=== PATIENT | female | born 1960 | race Caucasian/White ===

== ENCOUNTER 2023-10-17 09:57 | Outpatient (RCR) | payer OTHER, SELFPAY | END 2023-10-17 23:59 | disposition home or self-care (01) | LOC: RST 09:57 | PROVIDERS: ATTENDING PHYSICIAN Physical Medicine & Rehabilitation; FAMILY PHYSICIAN Physician Assistant Medical | DX: H81.11 Benign paroxysmal vertigo, right ear (principal); Z95.2 Presence of prosthetic heart valve; L90.5 Scar conditions and fibrosis of skin; I99.8 Other disorder of circulatory system; J90 Pleural effusion, not elsewhere classified; Z87.74 Personal history of (corrected) congenital malformations of heart and circulatory system | CPT/HCPCS: 92507; 97010; 97110; 97112; 97116; 97162; 97530; 97535; G0422; G0423 ==

== ENCOUNTER → 2023-10-17 15:45 | Outpatient (REF) | payer OTHER, MEDICARE, SELFPAY | LOC: RAD 15:45 | PROVIDERS: ATTENDING PHYSICIAN Podiatrist Foot & Ankle Surgery; FAMILY PHYSICIAN Physician Assistant Medical | DX: M86.172 Other acute osteomyelitis, left ankle and foot (principal) | CPT/HCPCS: 73630 ==

== ENCOUNTER → 2023-10-29 16:24 | Outpatient (REF) | payer OTHER, SELFPAY | LOC: RAD 16:24 | PROVIDERS: ATTENDING PHYSICIAN Physician Assistant Medical | DX: M54.2 Cervicalgia (principal) | CPT/HCPCS: 72052 ==

== ENCOUNTER → 2023-11-14 10:14 | Outpatient (REF) | payer OTHER, SELFPAY ==
[2023-11-14 11:34] LABS: % Basophils 0.2 % (0-2); % Immature Granulocytes 0.2 % (0-0.5); % Monocytes 5.2 % (1.7-9.3); % Neutrophils 63.4 % (42.2-75.2); Absolute Eosinophils 0.6 10^3/uL (0-0.7); Absolute Monocytes 0.3 10^3/uL (0.1-0.6); Absolute Neutrophils 3.3 10^3/uL (1.4-6.5); Hematocrit 32.8 % (37.0-47.0); Mean Corp Hgb Conc. 33.5 g/dL (33.0-37.0); Mean Corpuscular Hgb 26.9 pg (27.0-31.0); Mean Corpuscular Volume 80.2 fL (81.0-99.0); Mean Platelet Volume 11.3 fL (7.4-10.4); Nucleated Red Blood Cells % 0 %; Platelet Count 151 10^3/uL (130-400); Red Blood Cell Count 4.09 10^6/uL (4.20-5.40); Red Cell Dist. Width 14.6 % (11.5-14.5); White Blood Cell Count 5.2 10^3/uL (4.8-10.8)
[2023-11-14 11:39] LABS: INR 1.35; PT 16.8 Sec (11.4-14.6)
[2023-11-14 11:40] LABS: APTT 47.8 Sec (23.4-35.0)
[2023-11-14 12:04] LABS: ALT (SGPT) 49 U/L (0-35); AST (SGOT) 45 U/L (14-36); Albumin 4.3 g/dl (3.5-5.0); Alkaline Phosphatase 102 U/L (38-126); Direct Bilirubin 0.5 mg/dl (0.0-0.4); Total Bilirubin 0.6 mg/dl (0.2-1.3); Total Protein 7.9 g/dl (6.3-8.2)
== END ==
LOC: REG 10:14
PROVIDERS: ATTENDING PHYSICIAN Physician Assistant Medical
DX: R23.3 Spontaneous ecchymoses (principal)
CPT/HCPCS: 36415; 80076; 85025; 85610; 85730

== ENCOUNTER 2023-11-14 15:20 | Outpatient (RCR) | payer OTHER, SELFPAY | END 2023-11-14 23:59 | disposition home or self-care (01) | LOC: CRHB 15:20 | PROVIDERS: ATTENDING PHYSICIAN Internal Medicine Cardiovascular Disease | DX: Z95.2 Presence of prosthetic heart valve (principal); Z95.810 Presence of automatic (implantable) cardiac defibrillator | CPT/HCPCS: G0422; G0423 ==

== ENCOUNTER → 2023-11-15 08:28 | Outpatient (REF) | payer OTHER, SELFPAY | LOC: RAD 08:28 | PROVIDERS: ATTENDING PHYSICIAN Physician Assistant Medical | DX: Z13.820 Encounter for screening for osteoporosis (principal) | CPT/HCPCS: 77080 ==

== ENCOUNTER 2023-11-15 10:23 | Outpatient (RCR) | payer OTHER, SELFPAY | END 2023-11-15 23:59 | disposition home or self-care (01) | LOC: RST 10:23 | PROVIDERS: ATTENDING PHYSICIAN Physical Medicine & Rehabilitation; FAMILY PHYSICIAN Physician Assistant Medical | DX: R49.0 Dysphonia (principal); R41.841 Cognitive communication deficit; L90.5 Scar conditions and fibrosis of skin; R65.21 Severe sepsis with septic shock; J90 Pleural effusion, not elsewhere classified; K81.9 Cholecystitis, unspecified; Z95.2 Presence of prosthetic heart valve; Z87.74 Personal history of (corrected) congenital malformations of heart and circulatory system | CPT/HCPCS: 92507 ==

== ENCOUNTER → 2023-11-19 17:39 | Outpatient (REF) | payer OTHER, SELFPAY | LOC: RAD 17:39 | PROVIDERS: ATTENDING PHYSICIAN Podiatrist Foot & Ankle Surgery; FAMILY PHYSICIAN Physician Assistant Medical | DX: M86.172 Other acute osteomyelitis, left ankle and foot (principal) | CPT/HCPCS: 73630 ==

== ENCOUNTER → 2023-11-26 07:27 | Outpatient (REF) | payer OTHER, SELFPAY ==
[2023-11-26 07:54] VITALS: BP 90/54; BP_SYST 71
[2023-11-26 08:38] VITALS: BP 95/65; BP_SYST 73
[2023-11-26 08:47] VITALS: BP 95/65
== END ==
LOC: RADI 07:27
PROVIDERS: ATTENDING PHYSICIAN Internal Medicine Infectious Disease; FAMILY PHYSICIAN Physician Assistant Medical
DX: M86.9 Osteomyelitis, unspecified (principal)
CPT/HCPCS: 36573

== ENCOUNTER 2023-11-26 08:53 | Outpatient (RCR) | payer OTHER, SELFPAY ==
[2023-11-26] MEDS: MAXIPIME 62.5 MG IV (09:53)
[2023-11-26 09:59] VITALS: BP 146/89
[2023-11-26 10:15] LABS: % Basophils 2.3 % (0-2); % Eosinophils 4.7 % (0-6); % Immature Granulocytes 0.2 % (0-0.5); % Lymphocytes 41.3 % (20.5-51.1); % Monocytes 11.7 % (1.7-9.3); % Neutrophils 39.8 % (42.2-75.2); Absolute Basophils 0.1 10^3/uL (0-0.2); Absolute Eosinophils 0.3 10^3/uL (0-0.7); Absolute Lymphocytes 2.2 10^3/uL (1.2-3.4); Absolute Monocytes 0.6 10^3/uL (0.1-0.6); Absolute Neutrophils 2.1 10^3/uL (1.4-6.5); Hematocrit 31.5 % (37.0-47.0); Hemoglobin 10.4 g/dL (12.0-16.0); Mean Corpuscular Hgb 27.2 pg (27.0-31.0); Mean Corpuscular Volume 82.5 fL (81.0-99.0); Mean Platelet Volume 10.3 fL (7.4-10.4); Nucleated Red Blood Cells % 0 %; Platelet Count 308 10^3/uL (130-400); Red Blood Cell Count 3.82 10^6/uL (4.20-5.40); Red Cell Dist. Width 14.6 % (11.5-14.5); White Blood Cell Count 5.3 10^3/uL (4.8-10.8)
[2023-11-26 10:26] LABS: ALT (SGPT) 30 U/L (0-35); AST (SGOT) 31 U/L (14-36); Alkaline Phosphatase 94 U/L (38-126); Blood Urea Nitrogen 18 mg/dl (7-17); Calcium 9.1 mg/dl (8.4-10.2); Carbon Dioxide 28 mmol/L (22-30); Chloride 102 mmol/L (98-107); Glucose 81 mg/dl (70-99); Potassium 4.3 mmol/L (3.5-5.1); Sodium 133 mmol/L (135-145); Total Bilirubin 0.8 mg/dl (0.2-1.3); Total Protein 7.3 g/dl (6.3-8.2); eGFR > 60.00
[2023-11-26 10:30] LABS: C-Reactive Protein < 5.00 mg/L (0.0-10.00)
== END 2023-12-16 23:59 | disposition home or self-care (01) ==
LOC: OID 08:53
PROVIDERS: ATTENDING PHYSICIAN Internal Medicine Infectious Disease; FAMILY PHYSICIAN Physician Assistant Medical
DX: M86.9 Osteomyelitis, unspecified (principal)
CPT/HCPCS: 80053; 85025; 86140; 96365

== ENCOUNTER 2023-11-28 09:31 | Outpatient (RCR) | payer OTHER, SELFPAY | END 2023-11-28 23:59 | disposition home or self-care (01) | LOC: RST 09:31 | PROVIDERS: ATTENDING PHYSICIAN Physical Medicine & Rehabilitation; FAMILY PHYSICIAN Physician Assistant Medical | DX: R49.0 Dysphonia (principal); R41.841 Cognitive communication deficit; L90.5 Scar conditions and fibrosis of skin; R65.21 Severe sepsis with septic shock; J90 Pleural effusion, not elsewhere classified; K81.9 Cholecystitis, unspecified; Z95.2 Presence of prosthetic heart valve; Z87.74 Personal history of (corrected) congenital malformations of heart and circulatory system | CPT/HCPCS: 92507 ==

== ENCOUNTER 2023-12-10 07:30 | Outpatient (RCR) | payer OTHER, SELFPAY | END 2023-12-10 23:59 | disposition home or self-care (01) | LOC: RPT 07:30 | PROVIDERS: ATTENDING PHYSICIAN Physician Assistant Medical | DX: M54.2 Cervicalgia (principal); Z73.6 Limitation of activities due to disability | CPT/HCPCS: 97010; 97110; 97162 ==

== ENCOUNTER 2023-12-12 14:35 | Outpatient (RCR) | payer OTHER, SELFPAY | END 2023-12-12 23:59 | disposition home or self-care (01) | LOC: CRHB 14:35 | PROVIDERS: ATTENDING PHYSICIAN Internal Medicine Cardiovascular Disease | DX: Z95.2 Presence of prosthetic heart valve (principal) | CPT/HCPCS: G0422; G0423 ==

== ENCOUNTER 2023-12-24 16:38 | Inpatient (IN) | payer OTHER, SELFPAY ==
[2023-12-24 10:40] VITALS: BMI 28.9
[2023-12-24 10:58] VITALS: BP 110/56
[2023-12-24 13:13] VITALS: BP 94/56
[2023-12-24 13:38] LABS: Lactic Acid 0.7 mmol/L (0.7-2.0)
[2023-12-24 13:39] LABS: % Basophils 0.3 % (0-2); % Eosinophils 5.2 % (0-6); % Immature Granulocytes 0.7 % (0-0.5); % Lymphocytes 16.7 % (20.5-51.1); % Monocytes 6.9 % (1.7-9.3); % Neutrophils 70.2 % (42.2-75.2); Absolute Eosinophils 0.2 10^3/uL (0-0.7); Absolute Lymphocytes 0.5 10^3/uL (1.2-3.4); Absolute Monocytes 0.2 10^3/uL (0.1-0.6); Hematocrit 24.2 % (37.0-47.0); Hemoglobin 8.5 g/dL (12.0-16.0); Mean Corp Hgb Conc. 35.1 g/dL (33.0-37.0); Mean Corpuscular Hgb 27.6 pg (27.0-31.0); Mean Corpuscular Volume 78.6 fL (81.0-99.0); Mean Platelet Volume 10.9 fL (7.4-10.4); Nucleated Red Blood Cells % 0 %; Platelet Count 142 10^3/uL (130-400); Red Blood Cell Count 3.08 10^6/uL (4.20-5.40); Red Cell Dist. Width 14.6 % (11.5-14.5); White Blood Cell Count 2.9 10^3/uL (4.8-10.8)
[2023-12-24 13:40] LABS: Potassium 3.8 mmol/L (3.5-5.1)
[2023-12-24 13:41] LABS: Blood Urea Nitrogen 20 mg/dl (7-17); Carbon Dioxide 16 mmol/L (22-30); Chloride 105 mmol/L (98-107); Estimated Creatinine Clearance 60 ml/min; Glucose 105 mg/dl (70-99); Magnesium 1.8 mg/dl (1.6-2.3); Sodium 131 mmol/L (135-145); eGFR > 60.00
--- NOTE | 2023-12-24 13:46 | ED.GENMED ---
History of Present Illness
General
Chief Complaint: Abdominal Symptoms
Source: patient
Exam Limitations: none
Time Seen by Provider: 12/24/23 12:24
Nursing documentation reviewed up to this point in time: agreed with
Travel History
Have you had any contact with someone who has COVID-19?: No
Do you have any symptoms of coronavirus? Fever > 100 degrees, chills, cough, shortness of breath, sore throat, loss of taste or smell, muscle aches, or headache?: No
History of Present Illness
History of Present Illness:
Patient currently receiving cefepime via right upper extremity PICC line x 4 weeks for left great toe osteomyelitis, presents ED secondary to 1 week history of persistent nonbloody diarrhea, 1 episode of vomiting, along with decreased appetite and
generalized weakness. Patient was evaluated by her latex spooler this morning and subsequently referred to ED for further evaluation and treatment. Denies fever or chills. Denies dizziness. Denies chest pain or shortness of breath. Denies
abdominal pain.
Past History
Past History
ED Past Medical History: Arrthythmia, CAD, HTN, Valvular disease and Psychiatric (depression)
ED Past Surgical History: Cardiac (Aortic valve repair)
Social History
Tobacco: Non-smoker
Alcohol: None
Drug: None
Personal:
Living: with family
Review of Systems
Review of Systems
Allergies reviewed?: Yes
All Other Systems: ROS reviewed and negative except as documented in HPI and ROS
Constitutional: Reports no symptoms; Denies fever
EENT: Reports no symptoms
Respiratory: Reports no symptoms
Cardiac: Reports no symptoms
ABD/GI: Reports nausea, vomiting and diarrhea; Denies abdominal pain
Musculoskeletal: Reports no symptoms
Skin: Reports no symptoms
Neurological: Reports weakness
Phy Exam
Physical Exam
Physical Exam:
Physical Exam
General: mild distress, not acutely ill. afebrile. weak appearing.
Head: nc/at. eomi
Neck: supple. no meningeal signs.
Heart: s1/s2 regular rate and rhythm, no murmur. equal radial pulses.
Lungs: no acute respiratory distress. clear bilaterally
Abdomen: normal bowel sounds. not tender.
Neuro: alert and oriented. no focal neurological deficits
Skin: no rash
Psychiatric: well kept. interactive and cooperative
Extremities: no edema. no calf tenderness.
Course
Orders/Labs/Results
Orders:
Orders
12/24/23 11:01
Foot, Left 3 View [CR Foot - Left Min 3 Views] Urgent
Comment:
Reason For Exam: ecoli infection
12/24/23 12:58
0.9% Sodium Chloride 1000 ml [Nss] 1,000 ml IV BOLUS
CR Chest Portable - 1 View Urgent
Comment:
Reason For Exam: RUE PICC line placement
Reason Study Needs to be Portable: Other
12/24/23 13:13
Basic Metabolic Panel Urgent
Complete Blood Count/With Diff Urgent
Lactic Acid Q4H
Comment: CANCEL 2nd LACTIC ACID IF 1st LACTIC ACID IS LESS THAN 2
Magnesium Urgent
Blood Culture Q30M
TIFFANY Source: Blood/Venous
Specimen Description:
Blood Culture Q30M
TIFFANY Source: Blood/Venous
Specimen Description:
12/24/23 15:09
Norovirus by PCR Urgent
TIFFANY Source: Feces/Stool
Specimen Description:
Date Specimen was Collected: 12/24/23
Time Specimen was Collected: 15:07
STOOL [C difficile Antigen & Toxins] Urgent
TIFFANY Source: Feces/Stool
Specimen Description:
Date Specimen was Collected: 12/24/23
Time Specimen was Collected: 15:07
Stool Culture Urgent
TIFFANY Source: Feces/Stool
Specimen Description:
Date Specimen was Collected: 12/24/23
Time Specimen was Collected: 15:07
12/24/23 15:21
0.9% Sodium Chloride 250 ml [Nss] 250 ml IV BOLUS
12/24/23 15:30
0.9% Sodium Chloride 1000 ml [Nss] 1,000 ml IV 100 mls/hr
12/24/23 16:22
Admit/Transfer Patient As Directed
Co-Sign Provider:
Level of Care: Inpatient admission
Assign to:: Medical/Surgical
Physician / Group: simona
Diagnosis: cdif
Reason for Hospitalization: cdif
Expected length of stay greater than two midnights?: Yes
ELOS- Estimated Length of Stay in days: 2
I certify the patient meets the requirements for IP care: Yes
12/24/23 16:23
Code Status As Directed
Resuscitation Status: Full Code
12/24/23 18:00
Vancomycin HCl [Firvanq] 125 mg PO Q6
12/24/23 22:00
Cefepime HCl [Maxipime] 2,000 mg IV Q12H
Sodium Chloride [Baring, Saline Mist] See Dose Instructions NASAL BID
12/24/23 22:02
Acetaminophen [Tylenol] 650 mg PO Q4HPRN PRN
Apixaban [Eliquis] 5 mg PO BID
Gabapentin [Neurontin] 300 mg PO BID
Metoprolol Xl [Toprol Xl] 25 mg PO BID
Ondansetron Injectable [Zofran] 4 mg IV Q6HPRN PRN
Sterile Water For Inj [Sterile Water For Injection 1000 ml] 1,000 ml Sodium Bicarbonate 150 meq IV 100 mls/hr
12/24/23 22:02
INFECTIOUS DISEASE CONSULT Routine
Consulting Provider: Hanane Erwin
Was physician already notified: Yes
VTE Contraindication Routine
VTE Mechanical Device Contraindication: Medical Contraindication
Pharmocologic Contraindication: Medical Contraindication
Activity As Directed
Activity Level: As Tolerated
Vital Signs As Directed
Frequency: Per unit guidelines
12/25/23 05:24
Comprehensive Metabolic Panel IN AM
12/25/23 05:25
Complete Blood Count/With Diff IN AM
12/25/23 08:00
Aspirin Chewable [Low Strength Aspirin] 81 mg PO DAILY
Cholecalciferol (Vitamin D3) [VITAMIN D3 (cholecalciferol)] 100 mcg PO DAILY
Escitalopram Oxalate [Lexapro] 10 mg PO DAILY
Famotidine [Pepcid] 20 mg PO DAILY
Ferrous Sulfate [Feosol] 325 mg PO DAILY
Loratadine [Claritin] 10 mg PO DAILY
Multivitamin [Theragran] 1 tablet PO DAILY
Pantoprazole [Protonix] 40 mg PO DAILY
Abnormal Lab Results
12/24/23
13:13
WBC 2.9 L 10^3/uL
(4.8-10.8)
RBC 3.08 L 10^6/uL
(4.20-5.40)
Hgb 8.5 L g/dL
(12.0-16.0)
Hct 24.2 L %
(37.0-47.0)
MCV 78.6 L fL
(81.0-99.0)
RDW 14.6 H %
(11.5-14.5)
MPV 10.9 H fL
(7.4-10.4)
Absolute Lymphs (auto) 0.5 L 10^3/uL
(1.2-3.4)
Immature Gran % 0.7 H %
(0-0.5)
Lymphocytes % 16.7 L %
(20.5-51.1)
Sodium 131 L mmol/L
(135-145)
Carbon Dioxide 16 L mmol/L
(22-30)
BUN 20 H mg/dl
(7-17)
Glucose 105 H mg/dl
(70-99)
12/24/23 13:13
12/24/23 13:13
Vital Signs
Initial and Last Documented VS:
Initial Vital Signs
Temp Pulse Resp BP Pulse Ox
99.3 F 84 18 110/56 100
12/24/23 10:58 12/24/23 10:58 12/24/23 10:58 12/24/23 10:58 12/24/23 10:58
Last Documented Vital Signs
Temp Pulse Resp BP Pulse Ox
97.8 F 79 16 89/49 97
12/25/23 03:15 12/25/23 03:15 12/25/23 03:15 12/25/23 03:15 12/25/23 03:15
MDM/Problems Addressed
MDM/Problems Addressed:
C. difficile toxin positive. Patient will be admitted for further evaluation treatment, especially in light of ongoing dehydration from diarrhea.
Pt evaluated in ED by (ID) - recommendations provided in consultation note.
Pt remains hemodynamically stable.
*Critical Care Note
Total Time (30-74mins, 75-104mins- exclusive of procedures): Not Applicable
ED Attending Note
-
Portions of this chart may have been created with voice recognition software.� Occasional wrong word or��sound alike� substitutions may have occurred due to the inherent limitations of voice recognition software.
Discharge Plan
Departure
Patient Disposition: Admit
Date of Disposition: 12/24/23
Time of Disposition: 16:00
Admit to: Telemetry
Presentation/result/management discussed w/ accepting MD/DO: Hospitalist
Discharge Problem:
C. difficile diarrhea
Interventions
Interventions:
*Risk Screen - Suicide Last Done: 12/24/23 19:51
*General Assessment Last Done: 12/24/23 19:51
*Neglect/Abuse Screening Last Done: 12/24/23 19:51
ED- Fall Risk Assessment Last Done: 12/24/23 12:55
*ED COVID-19 Vaccine History Last Done: 12/24/23 19:51
*Nursing Disposition Last Done: 12/24/23 19:51
XX-Pdwszs-Krispwtxid Assessment Last Done: 12/24/23 12:55
Discharge Date and Time
Discharge Date/Time: 12/24/23 19:54
[2023-12-24 14:00] VITALS: BP 102/60
[2023-12-24] MEDS: NSS 1000 IV ×2 (14:19→18:13)
--- NOTE | 2023-12-24 16:05 | CON.ID ---
Consultation
-
Date/Time Consultation Requested: 12/24/2023, 1400
Date/Time Consultation Performed: 12/24/2023, 1530
Requesting Provider: Dr. Logan Florentino
Performing Provider: Dr. Hanane Erwin
Reason for Consultation: Diarrhea, on IV abx for toe osteo
Chief Complaint / Past History
Chief Complaint
Fatigue and diarrhea
History of Present Illness
Ms. Barnett is a 63 year female known to me with hx who underwent bio-AVR on 05/2023 complicated by post-op left ventricular outlet obstruction requiring re-op septal myomectomy, VSD patch, radical MV repair. Post-op complicated by complete heart
block s/p PPM (06/04/23), shock, JONAS, VDRF, thrombocytopenia, and ischemic/gangrene of all toes. Right 5th toe and left 4th toe allowed to auto-amputate. She eventually recovered. She had persistent left great toe wound and followed with Podiatry.
She continued to have swelling and redness of great toe. 09/19/23 Left foot XRAY showed acute osteo in the tuft of the distal phalanx of left great toe. 10/22/23 toe cx:heavy growth of E. coli. She was placed on Bactrim. However, creatinine increased
and nephrology recommended dc Bactrim. In addition, she developed petechial rash on her legs, and torso. She was referred to ID. I put her on cefepime 2g IV q12 x 6 week till 01/07/24.
She saw podiatry today who sent her to ED. She reports last week started having diarrhea several times a day. Appetite poor. Emesis x 1. No abd pain. No fever or chills. She submitted stool sample for C. diff and norovirus. The great toe is
doing well.
Past History
Additional Past Medical History:
pAfib
s/p bio-AVR (05/2023)
Septal myomectomy (05/2023)
VSD repair (05/2023)
Complete heart block s/p PPM (05/2023)
HFpEF
Post-op ischemic toes
Depression/anxiety
Sciatica
Allergy History:
cat dander Allergy (Verified 11/26/23 10:20)
congestion
dog dander Allergy (Verified 11/26/23 10:20)
congestion
grass pollen Allergy (Verified 11/26/23 10:20)
seasonal allergies
house dust Allergy (Verified 11/26/23 10:20)
congestion
nadolol Allergy (Verified 11/26/23 10:20)
Unknown
sulfamethoxazole [From Bactrim] Allergy (Verified 11/26/23 10:20)
Unknown
trimethoprim [From Bactrim] Allergy (Verified 11/26/23 10:20)
Unknown
Medications Reviewed: Yes
Current Antibiotics:
cefepime 2 gIV q12
Social History
Tobacco: Non-Smoker
Alcohol: None
Drug: None
Family History
Family History: Not Pertinent
Review of Systems
Review of Systems
General: Change in Appetite; Negative Fever or Chills
HEENT: Negative Sinus Problems, Headache or Pharyngitis
Cardiovascular: Negative Chest Pain
Respiratory: Negative Cough
Gasteroenterology: Nausea, Vomiting and Other (diarrhea)
Genital / Urological: Negative Dysuria or Flank Pain
Endocrine: Weakness and Fatigue
Skin / Hair / Nails: Negative Rash
Neurological: Negative Headache or Dizziness
All systems: All other systems were reviewed and were negative
Vital Signs
Temp Pulse Resp BP Pulse Ox
99.3 F 84 18 102/60 97
12/24/23 10:58 12/24/23 10:58 12/24/23 10:58 12/24/23 14:00 12/24/23 14:45
Physical Exam
Physical Exam
Constitutional: No Acute Distress
Eyes: No Conjunctival Hemorrhage and Sclera Anicteric
Cardiovascular: Regular Rate and S1/S2
Pulmonary: Clear
Gastrointestinal: Soft, Non Tender and Non Distended
Genito-Urinary: Negative CVA Tenderness
Extremities: Negative Edema
Wound: Other (Left great toe - wound healed, erythema decreased)
Neurological: AO x 3
Lab / Diagnostic Study Results
12/24/23 13:13
12/24/23 13:13
Abs Immat Gran (auto) 0.0 10^3/uL (0-0.05) 12/24/23 13:13
Absolute Neuts (auto) 2.0 10^3/uL (1.4-6.5) 12/24/23 13:13
Absolute Lymphs (auto) 0.5 10^3/uL (1.2-3.4) L 12/24/23 13:13
Absolute Monos (auto) 0.2 10^3/uL (0.1-0.6) 12/24/23 13:13
Absolute Basos (auto) 0.0 10^3/uL (0-0.2) 12/24/23 13:13
Immature Gran % 0.7 % (0-0.5) H 12/24/23 13:13
Neutrophils % 70.2 % (42.2-75.2) 12/24/23 13:13
Lymphocytes % 16.7 % (20.5-51.1) L 12/24/23 13:13
Monocytes % 6.9 % (1.7-9.3) 12/24/23 13:13
Eosinophils % 5.2 % (0-6) 12/24/23 13:13
Basophils % 0.3 % (0-2) 12/24/23 13:13
Lactic Acid 0.7 mmol/L (0.7-2.0) 12/24/23 13:13
Microbiology Results
Micro:
12/24/23 15:09 C. difficile GDH Antigen & Toxins - Final
Feces/Stool Toxigenic C.difficile Positive
- Pending
12/24/23 15:09 Salmonella/Shigella Culture - Pending
Feces/Stool Campylobacter Culture - Pending
Shiga Toxin Test - Pending
12/24/23 13:13 Blood Culture - Pending
Blood/Venous
12/24/23 13:13 Blood Culture - Pending
Blood/Venous
Assessment / Plan
# C. difficile diarrhea due to salvage determiner abx use
- Start Vancomycin 125mg po q6h
- Stool diary
- Hydrate with IVF
- Follow clinically
# Left great toe osteo
- Clinically improving.
- Outpt CRP trended to normal
-Continue cefepime 2gIV q12 for now (day 28 of 42)
- Will consider dc abx if C. diff does not improve.
Care Review
Plan reviewed with: Physician (Dr. Florentino)
--- NOTE | 2023-12-24 16:29 | HPS.HSE ---
Family Physician
-
Family Physician: Aileen Tarango
Chief Complaint
-
diarrhea
History of Present Illness
63-year-old female past medical history of aortic stenosis status post aortic valve replacement, mitral valve repair with septal myomectomy, paroxysmal atrial fibrillation status post cardioversion, complete heart block status post ICD/pacemaker,
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
hyponatremia, scoliosis, presenting with 1 week of persistent nonbloody diarrhea with mucus, decreased appetite and generalized weakness. Had 1 episode of vomiting. Does have some abdominal cramping.
Patient is currently receiving cefepime via right upper extremity PICC line for 6 weeks for left great toe osteomyelitis. She is 1 month into treatment. Patient denies any fevers or chills, dizziness. No chest pain or shortness of breath.
Patient denies smoking or alcohol use.
Medical History
Past Medical History
Past Medical History: Reports Other (aortic stenosis status post aortic valve replacement, mitral valve repair with septal myomectomy, paroxysmal atrial fibrillation status post cardioversion, complete heart block status post ICD/pacemaker,
hypertension, hyperlipidemia, anemia, anxiety/depression, sciatica, biliary sepsis status post c)
Past Surgical History: Reports Other (AVR, ICD/pacemaker, mitral valve repair with septal myomectomy)
Social History
Tobacco: Non-smoker
Alcohol: None
Drug: None
Family History
Family History: Not pertinent
Allergies / Home Medications
Allergies reflects when Allergies were last updated in [employer].
Home Medications with original date entered in [employer]
Allergy/Medication List:
Allergies
Allergy/AdvReac Type Severity Reaction Status Date / Time
cat dander Allergy congestion Verified 11/26/23 10:20
dog dander Allergy congestion Verified 11/26/23 10:20
grass pollen Allergy seasonal Verified 11/26/23 10:20
allergies
house dust Allergy congestion Verified 11/26/23 10:20
nadolol Allergy Unknown Verified 11/26/23 10:20
sulfamethoxazole Allergy Petechial Verified 12/24/23 16:24
[From Bactrim] rash; JONAS
trimethoprim [From Bactrim] Allergy Unknown Verified 11/26/23 10:20
Home Medications
acetaminophen 325 mg tablet 650 mg PO Q6H PRN mild pain 07/13/23
apixaban 5 mg tablet (Eliquis) 5 mg PO BID Blood clot prevention/tx #180 tabs 07/24/23
aspirin 81 mg chewable tablet 81 mg PO DAILY Blood clot prevention/tx #90 tabs 07/24/23
famotidine 20 mg tablet 20 mg PO DAILY Gastrointestinal issue #90 tabs 07/24/23
gabapentin 300 mg capsule 300 mg PO BID #120 caps 07/24/23
loratadine 10 mg tablet (Claritin) 10 mg PO DAILY Allergies #90 tabs 07/24/23
multivitamin 1 tab PO DAILY #90 tabs 07/24/23
ferrous sulfate 325 mg (65 mg iron) tablet (iron) 325 mg PO DAILY 11/26/23
pantoprazole 40 mg tablet,delayed release 40 mg PO DAILY 11/26/23
biotin 2 tab PO DAILY 12/24/23
cefepime 2 gram solution for injection 2 g IV Q12H 12/24/23
cholecalciferol (vitamin D3) 50 mcg (2,000 unit) tablet 100 mcg PO DAILY 12/24/23
escitalopram oxalate 10 mg tablet 10 mg PO DAILY 12/24/23
furosemide 20 mg tablet 20 mg PO DAILY PRN weight fluctuation 12/24/23
metoprolol succinate 25 mg tablet,extended release 24 hr 25 mg PO BID 12/24/23
pseudoephedrine 30 mg-acetaminophen 500 mg tablet 2 tab PO BIDPRN PRN sinus issues 12/24/23
sodium chloride 0.65 % nasal spray aerosol (Saline Nasal Mist) 2 spray intranasal BID 12/24/23
Review of Systems
-
History Source: Patient
A 12 point ROS was completed and negative except as noted: Yes
Constitutional: Reports No Symptoms
EENT: Reports No Symptoms
Respiratory: Reports No Symptoms
Cardiac: Reports No Symptoms
Abdomen/GI: Reports See HPI
: Reports No Symptoms
Musculoskeletal: Reports No Symptoms
Skin: Reports No Symptoms
Neurological: Reports No Symptoms
Endocrine: Reports No Symptoms
Hematologic/Lymphatic: Reports No Symptoms
Psych: Reports No Symptoms
Physical Exam
Vital Signs
Vital Signs
Temp Pulse Resp BP Pulse Ox
99.3 F 84 18 102/60 97
12/24/23 10:58 12/24/23 10:58 12/24/23 10:58 12/24/23 14:00 12/24/23 14:45
Physical Exam
General: Well Developed, Well Nourished and No Apparent Distress
HEENT: NormoCephalic, Moist mucous membranes and Atraumatic
Respiratory: Clear
Cardiac: S1/S2 and Regular Rhythm; No Murmur or Rub
GI: Soft, Non Tender, Non Distended and Normal Bowel Sounds; No Organomegaly
Rectal: Deferred by Provider
Musculoskeletal: No Clubbing, No Cyanosis and No Edema
Skin: No Rash
Neuro: Nonfocal/grossly intact
Laboratory Results
-
12/24/23 13:13
12/24/23 13:13
Laboratory Results
Lactic Acid 0.7 mmol/L (0.7-2.0) 12/24/23 13:13
Data Reviewed
-
Lab Data: Labs Reviewed by me
Old Records: Reviewed
Impression/Plan
-
IMPRESSION:
PLAN:
# C. difficile colitis secondary to current IV antibiotics for osteomyelitis
-C. difficile toxin positive
-Stool culture, norovirus, blood cultures pending
-P.o. vancomycin started
-clear liquids
-ID consulted
# Non-anion gap metabolic acidosis secondary to GI losses
- IV fluids with bicarbonate
# Osteomyelitis of left great toe
-X-ray shows no significant change compared to prior study
-Continue IV cefepime through right upper extremity PICC line for approximately 2 more weeks
-ID consulted
Chronic hyponatremia
-Sodium stable
Aortic stenosis status post AVR
-Continue aspirin
Mitral valve repair with septal myomectomy
Mild to moderate mitral regurgitation
-Hold Lasix
Paroxysmal atrial fibrillation status post cardioversion
-Continue Eliquis
-Continue metoprolol
Complete heart block status post ICD/pacemaker
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
History of recurrent pleural effusions after AVR status post thoracentesis
Essential hypertension
Hyperlipidemia
Chronic anemia
-Hemoglobin fluctuates between 8.5-10
-Currently hemoglobin 8.5, continue to monitor
-Continue iron supplement
Anxiety/depression
-Continue Lexapro
Sciatica
-Continue gabapentin
Biliary sepsis status post cholecystostomy drain
Sacral decubitus ulcer
Scoliosis
GERD
-Continue Protonix
Full code
DVT prophylaxis�Eliquis
clear liquids
[2023-12-24] MEDS: NSS 250 IV (18:13)
[2023-12-24] MEDS: FIRVANQ 125 MG PO ×2 (19:28→23:29)
--- NOTE | 2023-12-24 19:35 | PTCARENOTE ---
Pt arrived to unit and ambulated from the stretcher to the bed. Pt VSS and pt was oriented to the room. Pt has call jones within reach and has been instructed to ring the jones when the need arises to ambulate. Pt denies any pain upon arrival
[2023-12-24 20:16] VITALS: BMI 22.0
[2023-12-24 20:38] VITALS: BP 94/53
[2023-12-24 23:09] VITALS: BP 86/48
[2023-12-24 23:26] VITALS: BMI 22.0
[2023-12-24] MEDS: OCEAN, SALINE MIST 2 SPRAYS NASAL (23:27)
[2023-12-24] MEDS: TOPROL XL PO (23:30)
[2023-12-24] MEDS: NEURONTIN 300 MG PO (23:31)
[2023-12-24] MEDS: ELIQUIS 5 MG PO (23:31)
[2023-12-24] MEDS: MAXIPIME 2000 MG IV (23:31)
[2023-12-24] MEDS: STERILE WATER FOR INJECTION 10 ML IV (23:32)
[2023-12-24] MEDS: SODIUM BICARBONATE 1150 MEQ IV (23:38)
[2023-12-24] MEDS: TYLENOL 1000 MG PO (23:57)
--- NOTE | 2023-12-25 00:30 | PTCARENOTE ---
Pt stated that her dizziness had become more intense. Patient stated that she was feeling 'hot.' I assisted with removing the blankets, lowering the room temperature, and providing the pt with ice water. These interventions did not provide relief.
BRAZER HELPER INDUCTION
--- NOTE | 2023-12-25 00:30 | PTCARENOTE ---
Pt stated that her dizziness and nausea was more intense from the baseline. Pt respirations increased slightly and stated she felt 'hot.' Vital signs taken, including blood glucose. Assisted with removing excess blankets, lowering room temperature
and providing a bag of ice. Tylenol administered for headache. Interventions did not provide adequate relief. SALES ACCOUNT SPECIALIST Nancy Zuniga contacted. IV team contacted to establish a second IV site so that a NSS 500ml bolus could be initiated in addition to the
Sodium Bicarb 100ml/hr running through the right PICC. At around 0200 SALES ACCOUNT SPECIALIST was contacted regarding the pt's anxiety and xanax was ordered. Patient was then able to calm down and fall asleep. Bolus completed.
[2023-12-25] MEDS: NSS 500 IV (00:56)
[2023-12-25 01:13] LABS: Glucose - Point of Care 98 mg/dl (70-99)
[2023-12-25] MEDS: XANAX 0.25 MG PO ×3 (02:02→20:36)
[2023-12-25 03:15] VITALS: BP 89/49
[2023-12-25 05:44] LABS: Hematocrit 25.4 % (37.0-47.0); Hemoglobin 8.8 g/dL (12.0-16.0); Mean Corp Hgb Conc. 34.6 g/dL (33.0-37.0); Mean Corpuscular Hgb 27.3 pg (27.0-31.0); Mean Corpuscular Volume 78.9 fL (81.0-99.0); Mean Platelet Volume 10.8 fL (7.4-10.4); Nucleated Red Blood Cells % 0 %; Platelet Count 115 10^3/uL (130-400); Red Blood Cell Count 3.22 10^6/uL (4.20-5.40); Red Cell Dist. Width 14.9 % (11.5-14.5); White Blood Cell Count 2.7 10^3/uL (4.8-10.8)
[2023-12-25] MEDS: FIRVANQ 125 MG PO ×4 (06:13→22:53)
[2023-12-25 06:15] LABS: ALT (SGPT) 54 U/L (0-35); AST (SGOT) 165 U/L (14-36); Albumin 2.9 g/dl (3.5-5.0); Alkaline Phosphatase 111 U/L (38-126); Blood Urea Nitrogen 17 mg/dl (7-17); Calcium 8.5 mg/dl (8.4-10.2); Carbon Dioxide 20 mmol/L (22-30); Chloride 108 mmol/L (98-107); Estimated Creatinine Clearance 58 ml/min; Glucose 93 mg/dl (70-99); Potassium 3.5 mmol/L (3.5-5.1); Sodium 132 mmol/L (135-145); Total Bilirubin 0.5 mg/dl (0.2-1.3); Total Protein 5.7 g/dl (6.3-8.2); eGFR > 60.00
[2023-12-25 06:28] LABS: Absolute Neutrophils -Man Diff 1.7 10^3/uL (1.4-6.5); Band Neutrophils 13 % (0-3); Eosinophils 5 % (0-6); Lymphocytes 23 % (20-51); Monocytes 7 % (2-9); Normal RBC Morphology Yes; Platelets Checked Yes; Segmented Neutrophils 52 % (42-75); Total Cells Counted 100
[2023-12-25 07:40] VITALS: BP 96/57
[2023-12-25 07:54] LABS: Glucose - Point of Care 105 mg/dl (70-99)
[2023-12-25] MEDS: TOPROL XL PO (08:29)
[2023-12-25] MEDS: THERAGRAN 1 TABLET PO (08:31)
[2023-12-25] MEDS: PROTONIX 40 MG PO (08:31)
[2023-12-25] MEDS: PEPCID 20 MG PO (08:31)
[2023-12-25] MEDS: TYLENOL 650 MG PO ×2 (08:31→13:12)
[2023-12-25] MEDS: OCEAN, SALINE MIST 1 SPRAYS NASAL (08:31)
[2023-12-25] MEDS: FEOSOL 325 MG PO (08:31)
[2023-12-25] MEDS: LEXAPRO 10 MG PO (08:31)
[2023-12-25] MEDS: LOW STRENGTH ASPIRIN 81 MG PO (08:31)
[2023-12-25] MEDS: CLARITIN 10 MG PO (08:31)
[2023-12-25] MEDS: ELIQUIS 5 MG PO ×2 (08:31→20:36)
[2023-12-25] MEDS: VITAMIN D3 (cholecalciferol) 100 MCG PO (08:31)
[2023-12-25] MEDS: NEURONTIN 300 MG PO ×2 (08:31→20:36)
[2023-12-25] MEDS: SODIUM BICARBONATE 1150 MEQ IV ×2 (09:47→21:52)
[2023-12-25] MEDS: STERILE WATER FOR INJECTION 10 ML IV (09:47)
[2023-12-25] MEDS: MAXIPIME 2000 MG IV (09:47)
[2023-12-25 11:03] VITALS: BP 126/68
[2023-12-25] MEDS: TORADOL 15 MG IV (11:20)
--- NOTE | 2023-12-25 11:26 | W.PN.ID1 ---
Date of Service
Date of Service: December 25, 2023
Today's Communication
DC cefepime. See below.
Assessment / Plan
# C. difficile diarrhea due to intermediate abx use
# Fever
- Vancomycin 125mg po q6h (d2)
- Stool diary
- Follow blood cx's
- Trend temps
# Left great toe osteo - Clinically improving on cefepime
# Limb tingling and pain after cefepime infusion in hospital
-Discontinue cefepime 2gIV q12 (day 29)
- Follow clinically
# Acute elevated transaminases, leukopenia, thrombocytopenia
- ?due to cefepime -> dc'd
- Monitor for improvment off cefepime.
%Additional Past Medical History:
pAfib
s/p bio-AVR (05/2023)
Septal myomectomy (05/2023)
VSD repair (05/2023)
Complete heart block s/p PPM (05/2023)
HFpEF
Post-op ischemic toes
Depression/anxiety
Sciatica
Chief Complaint
-: C-diff and Other (osteo)
Subjective / Review of Systems
Diarrhea improving. However of BUE/BLE tingling sensations and pain after each cefepime dose in hospital. Tolerated at home.
Vital Signs / Physical Exam
Vital Signs
Vital Signs
Temp Pulse Resp BP Pulse Ox
98.9 F 83 18 126/68 99
12/25/23 11:03 12/25/23 11:03 12/25/23 11:03 12/25/23 11:03 12/25/23 11:03
Selected Entries
12/25/23
07:40
Temp 101.1 F H
Physical Exam
Constitutional: Negative Comfortable (Uncomfortable due to pain.)
Gastrointestinal: Soft, Non Tender and Non Distended
Wound: Other (left great toe healed wound, minimal erythema)
Neurological: AO x 3
Objective Data
Lab Data
Lab Results
12/25/23 05:25
12/25/23 05:24
Estimated Creat Clear 58 ml/min 12/25/23 05:24
Lactic Acid Cancelled 12/24/23 16:30
Total Bilirubin 0.5 mg/dl (0.2-1.3) 12/25/23 05:24
AST 165 U/L (14-36) H 12/25/23 05:24
ALT 54 U/L (0-35) H 12/25/23 05:24
Alkaline Phosphatase 111 U/L (38-126) 12/25/23 05:24
Most recent labs reviewed.
Micro Results:
12/24/23 15:09 Salmonella/Shigella Culture - Preliminary
Feces/Stool Culture in Progress
Campylobacter Culture - Preliminary
Culture in Progress
Shiga Toxin Test - Pending
12/24/23 15:09 C. difficile GDH Antigen & Toxins - Final
Feces/Stool Toxigenic C.difficile Positive
- Final
Negative for Norovirus GI and GII.
12/24/23 13:13 Blood Culture - Pending
Blood/Venous
12/24/23 13:13 Blood Culture - Pending
Blood/Venous
Care Review
Plan reviewed with: Physician (Dr. Johansen)
--- NOTE | 2023-12-25 11:37 | CM ---
Patient seen bedside.
IA completed.
Patient lives with son on a 2 story home with 2 steps to enter.
[id number] does not use assistive devices.
Patient does drive.
Patient denies VN in the past.
PCP: Dr Tarango
Pharmacy: [facility].
Pkan: home no needs anticipated.
[2023-12-25 12:00] LABS: Glucose - Point of Care 155 mg/dl (70-99)
--- NOTE | 2023-12-25 13:23 | W.PN.HOSP.TC ---
Today's Communication/Plan
-
stop cefepime
adat
oral vanc
Assessment / Plan
Assessment / Plan
Physical Exam
General: Well Developed, Well Nourished and No Apparent Distress
HEENT: NormoCephalic, Moist mucous membranes and Atraumatic
Respiratory: Clear
Cardiac: S1/S2 and Regular Rhythm; No Murmur or Rub
GI: Soft, Non Tender, Non Distended and Normal Bowel Sounds; No Organomegaly
Rectal: Deferred by Provider
Musculoskeletal: No Clubbing, No Cyanosis and No Edema
Skin: No Rash
Neuro: Nonfocal/grossly intact
# C. difficile colitis secondary to current IV antibiotics for osteomyelitis
-C. difficile toxin positive
-P.o. vancomycin started
-clear liquids, ADAT
-ID consulted
� Follow blood cultures
� Trend temperatures
# Non-anion gap metabolic acidosis secondary to GI losses
- IV fluids with bicarbonate
# Osteomyelitis of left great toe
#Limb tingling after cefepime
-X-ray shows no significant change compared to prior study
-Continue IV cefepime through right upper extremity PICC line for approximately 2 more weeks was scheduled; discontinue due to tingling and continue to monitor
-ID consulted
-Pain control for limb tingling, no evidence of CVA at this time
#Acute elevated transaminitis
�Possibly secondary to cefepime
� Continue to monitor
#Pancytopenia
� Possibly secondary to cefepime
� Continue to monitor off antibiotic
Aortic stenosis status post AVR
-Continue aspirin
Mitral valve repair with septal myomectomy
Mild to moderate mitral regurgitation
-Hold Lasix
Paroxysmal atrial fibrillation status post cardioversion
-Continue Eliquis
-Continue metoprolol
Complete heart block status post ICD/pacemaker
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
History of recurrent pleural effusions after AVR status post thoracentesis
Essential hypertension
Hyperlipidemia
Chronic anemia
-Hemoglobin fluctuates between 8.5-10
-Currently hemoglobin 8.5, continue to monitor
-Continue iron supplement
Anxiety/depression
-Continue Lexapro
Sciatica
-Continue gabapentin
Biliary sepsis status post cholecystostomy drain
Sacral decubitus ulcer
Scoliosis
GERD
-Continue Protonix
Full code
DVT prophylaxis�Eliquis
clear liquids
Anticipated Discharge: 24 - 48 hours
Subjective/Interval History
-
Date of Service: December 25, 2023
Diarrhea improved, has extremity pain after cefepime
Objective Data
-
Labs:
Laboratory Results
12/25/23 12/25/23
05:24 05:25
WBC 2.7 L
Hgb 8.8 L
Hct 25.4 L
Plt Count 115 L
Sodium 132 L
Potassium 3.5
Chloride 108 H
Carbon Dioxide 20 L
BUN 17
Creatinine 0.8
Glucose 93
Calcium 8.5
Total Bilirubin 0.5
AST 165 H
ALT 54 H
Alkaline Phosphatase 111
Vital Signs:
Vital Signs
Temp Pulse Resp BP Pulse Ox
98.9 F 83 18 126/68 99
12/25/23 11:03 12/25/23 11:03 12/25/23 11:03 12/25/23 11:03 12/25/23 11:03
I&O
12/24/23 12/25/23 12/26/23
06:59 06:59 06:59
Intake Total 400 / 400
Balance 400 / 400
Review of Systems
-
History Source: Patient
All other systems: Not reviewed unless documented
Physical Exam
-
General: No Apparent Distress
HEENT: Normocephalic and Atraumatic
Respiratory: Negative Wheezes
Cardiac: Regular Rhythm
GI: Soft
Genito-urinary: No Costovertebral Tender
Neuro: AO x 3
Hematologic / Lymphatic: No Lymphadenopathy
Psych: Calm
Data Reviewed
-
Total Time Spent with Patient (in minutes): 45
Diagnostic Radiology: Image personally visualized and interpreted and Report Reviewed by me
CT Scan: Image personally visualized and interpreted and Report Reviewed by me
Labs: Labs Reviewed by me
[2023-12-25 15:35] VITALS: BP 91/53
[2023-12-25 16:44] LABS: Glucose - Point of Care 95 mg/dl (70-99)
[2023-12-25 20:09] VITALS: BP 107/59
[2023-12-25] MEDS: OCEAN, SALINE MIST 2 SPRAYS NASAL (20:37)
[2023-12-25] MEDS: TOPROL XL 25 MG PO (20:37)
[2023-12-26] VITALS (7 sets, daily range): BP systolic 74–113; BP diastolic 44–70; BMI 23.0
[2023-12-26] MEDS: TYLENOL 650 MG PO (00:07)
[2023-12-26 05:25] LABS: Hematocrit 23.6 % (37.0-47.0); Hemoglobin 8.1 g/dL (12.0-16.0); Mean Corp Hgb Conc. 34.3 g/dL (33.0-37.0); Mean Corpuscular Hgb 27.2 pg (27.0-31.0); Mean Corpuscular Volume 79.2 fL (81.0-99.0); Platelet Count 141 10^3/uL (130-400); Red Blood Cell Count 2.98 10^6/uL (4.20-5.40); Red Cell Dist. Width 14.8 % (11.5-14.5)
[2023-12-26 05:47] LABS: ALT (SGPT) 86 U/L (0-35); AST (SGOT) 203 U/L (14-36); Albumin 2.5 g/dl (3.5-5.0); Alkaline Phosphatase 145 U/L (38-126); Blood Urea Nitrogen 21 mg/dl (7-17); Calcium 7.9 mg/dl (8.4-10.2); Carbon Dioxide 31 mmol/L (22-30); Chloride 94 mmol/L (98-107); Estimated Creatinine Clearance 42 ml/min; Glucose 83 mg/dl (70-99); Sodium 132 mmol/L (135-145); Total Bilirubin 0.6 mg/dl (0.2-1.3); eGFR 55.76
[2023-12-26] MEDS: FIRVANQ 125 MG PO ×4 (05:53→23:18)
[2023-12-26] MEDS: NEURONTIN 300 MG PO ×2 (08:56→21:01)
[2023-12-26] MEDS: OCEAN, SALINE MIST 50 SPRAYS NASAL ×2 (08:56→21:01)
[2023-12-26] MEDS: CLARITIN 10 MG PO (08:56)
[2023-12-26] MEDS: ELIQUIS 5 MG PO ×2 (08:57→21:00)
[2023-12-26] MEDS: LEXAPRO 10 MG PO (08:57)
[2023-12-26] MEDS: LOW STRENGTH ASPIRIN 81 MG PO (08:57)
[2023-12-26] MEDS: VITAMIN D3 (cholecalciferol) 100 MCG PO (08:57)
[2023-12-26] MEDS: PROTONIX 40 MG PO (08:57)
[2023-12-26] MEDS: THERAGRAN 1 TABLET PO (08:58)
[2023-12-26] MEDS: PEPCID 20 MG PO (08:58)
[2023-12-26] MEDS: FEOSOL 325 MG PO (08:58)
[2023-12-26] MEDS: TOPROL XL PO ×2 (09:02→20:30)
[2023-12-26] MEDS: TYLENOL 1000 MG PO (09:04)
[2023-12-26] MEDS: SUDAFED 60 MG PO (09:05)
--- NOTE | 2023-12-26 10:53 | PN.CDI ---
CDI
- -
CDI:
Physician Documentation Request
Admit Date: 12/24/23 16:38
Dear Doctor Rich,
Please review the following and provide your response in the progress notes.
Clinical Indicators:
The diagnosis of sacral decubitus ulcer was documented on 4 PN.
- 4 PN 'Sacral decubitus ulcer'
- No nursing documentation for skin assessments
Please clarify the following:
____ - Sacral decubitus ulcer was present on admission
____ - Sacral decubitus ulcer was ruled out
____ - Other
Use of terms such as suspected, likely, concern for, or probable (associated with a specific diagnosis that is being evaluated, monitored, or treated as if it exists) are acceptable and can be coded in the inpatient setting, when documented at the
time of discharge.
Thank you,
Reena Sharp RN
CDI Specialist
Please use your independent medical judgment in providing your response.
[2023-12-26] MEDS: KCL ELIXIR 40 MEQ PO ×2 (11:05→12:29)
--- NOTE | 2023-12-26 13:10 | W.PN.HOSP.TC ---
Today's Communication/Plan
-
repeat blood cultures
LRD
ID recs for abx
RUQ Sono
Assessment / Plan
Assessment / Plan
Physical Exam
General: Well Developed, Well Nourished and No Apparent Distress
HEENT: NormoCephalic, Moist mucous membranes and Atraumatic
Respiratory: Clear
Cardiac: S1/S2 and Regular Rhythm; No Murmur or Rub
GI: Soft, Non Tender, Non Distended and Normal Bowel Sounds; No Organomegaly
Rectal: Deferred by Provider
Musculoskeletal: No Clubbing, No Cyanosis and No Edema
Skin: No Rash
Neuro: Nonfocal/grossly intact
# C. difficile colitis secondary to current IV antibiotics for osteomyelitis
-C. difficile toxin positive
-P.o. vancomycin started
-clear liquids, ADAT - LRD today
-ID consulted
� Follow blood cultures
� Trend temperatures
#Hypokalemia
-monitor and replete
# Non-anion gap metabolic acidosis secondary to GI losses
resolved
stop bicarb solution
# Osteomyelitis of left great toe
#Limb tingling after cefepime
-X-ray shows no significant change compared to prior study
-cefepime held - planned for approximately 2 more weeks was scheduled; discontinue due to tingling and continue to monitor
-ID consulted
-Pain control for limb tingling, no evidence of CVA at this time
#Sepsis
-most likely 2/2 to above osteo v cdiff
-f/u cultures
-off cefepime, f/u id recs for further abx therapy
-no urinary symptoms
#Acute elevated transaminitis
�Possibly secondary to cefepime
� Continue to monitor
-RUQ sono
#Pancytopenia
� Possibly secondary to cefepime
� Continue to monitor off antibiotic
Aortic stenosis status post AVR
-Continue aspirin
Mitral valve repair with septal myomectomy
Mild to moderate mitral regurgitation
-Hold Lasix
Paroxysmal atrial fibrillation status post cardioversion
-Continue Eliquis
-Continue metoprolol
Hyponatremia
-ctm
Complete heart block status post ICD/pacemaker
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
History of recurrent pleural effusions after AVR status post thoracentesis
Essential hypertension
Hyperlipidemia
Chronic anemia
-Hemoglobin fluctuates between 8.5-10
-Currently hemoglobin 8.5, continue to monitor
-Continue iron supplement
Anxiety/depression
-Continue Lexapro
Sciatica
-Continue gabapentin
Biliary sepsis status post cholecystostomy drain
Sacral decubitus ulcer
Scoliosis
GERD
-Continue Protonix
Full code
DVT prophylaxis�Eliquis
clear liquids
Total time spent on today's encounter was 50 minutes which included time spent in counseling the patient/family regarding diagnosis and treatment plan as listed above, goals of care, and symptom management. Case was discussed with nursing staff,
specialists, and care coordinators/case management. All labs and imaging personally reviewed by me. Remainder the time spent in detailed review of previous records, lab data, imaging, and other medical provider documentation.
Anticipated Discharge: > 48 hours
Subjective/Interval History
-
Date of Service: December 26, 2023
diarrhea improved; only two semiformed bm yesterday; spiking temps now
Objective Data
-
Labs:
Laboratory Results
12/26/23
04:49
WBC 3.0 L
Hgb 8.1 L
Hct 23.6 L
Plt Count 141 D
Sodium 132 L
Potassium 3.0 L
Chloride 94 L
Carbon Dioxide 31 H
BUN 21 H
Creatinine 1.1 H
Glucose 83
Calcium 7.9 L
Total Bilirubin 0.6
AST 203 H
ALT 86 H
Alkaline Phosphatase 145 H
Vital Signs:
Vital Signs
Temp Pulse Resp BP Pulse Ox
97.5 F 71 16 80/50 93
12/26/23 12:00 12/26/23 12:00 12/26/23 12:00 12/26/23 12:00 12/26/23 12:00
I&O
12/25/23 12/26/23 12/27/23
06:59 06:59 06:59
Intake Total 400 / 400 1919
Balance 400 / 400 1919
Review of Systems
-
History Source: Patient
All other systems: Not reviewed unless documented
Physical Exam
-
General: No Apparent Distress
HEENT: Normocephalic and Atraumatic
Respiratory: Negative Wheezes
Cardiac: Regular Rhythm
GI: Soft
Genito-urinary: No Costovertebral Tender
Neuro: AO x 3
Hematologic / Lymphatic: No Lymphadenopathy
Psych: Calm
Data Reviewed
-
Total Time Spent with Patient (in minutes): 45
Diagnostic Radiology: Image personally visualized and interpreted and Report Reviewed by me
CT Scan: Image personally visualized and interpreted and Report Reviewed by me
Labs: Labs Reviewed by me
--- NOTE | 2023-12-26 13:34 | W.PN.ID1 ---
Date of Service
Date of Service: December 26, 2023
Today's Communication
See below.
Assessment / Plan
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
# Fever - trending down
- Diarrhea resolving
- Follow blood neg to date.
- Trend temps
-Continue Vancomycin 125mg po q6h through 01/03/24.
- Discussed 20% recurrence rate after first episode C. diff.
# Limb tingling and pain resolved after dc cefepime.
# Left great toe osteo
- Resolving/resolved
- s/p cefepime 29 days 2gIV q12 ( short 13d)
- In light of C. diff, risk of continuing abx outweigh benefit.
- No further systemic abx going forward. DC PICC at time of discharge.
# Acute elevated transaminases, leukopenia, thrombocytopenia
- ?due to cefepime -> dc'd
- Leukopenia/thrombocytopenia improving.
%Additional Past Medical History:
pAfib
s/p bio-AVR (05/2023)
Septal myomectomy (05/2023)
VSD repair (05/2023)
Complete heart block s/p PPM (05/2023)
HFpEF
Post-op ischemic toes
Depression/anxiety
Sciatica
Chief Complaint
-: C-diff and Other (osteo)
Subjective / Review of Systems
Stool now soft/loose.
Limb tingling/pain resolved.
Feels better overall.
Vital Signs / Physical Exam
Vital Signs
Vital Signs
Temp Pulse Resp BP Pulse Ox
97.5 F 71 16 80/50 93
12/26/23 12:00 12/26/23 12:00 12/26/23 12:00 12/26/23 12:00 12/26/23 12:00
Selected Entries
12/26/23
00:03
Temp 100.9 F H
Physical Exam
Constitutional: No Acute Distress and Comfortable
Gastrointestinal: Soft, Non Tender and Non Distended
Genito-Urinary: Negative CVA Tenderness
Extremities: Other (left 4th toe purplish at tip; left great toe no erythema, no open wound); Negative Edema
Neurological: AO x 3
Lines: PICC (RUE intact)
Objective Data
Lab Data
Lab Results
12/26/23 04:49
12/26/23 04:49
Estimated Creat Clear 42 ml/min 12/26/23 04:49
Lactic Acid Cancelled 12/24/23 16:30
Total Bilirubin 0.6 mg/dl (0.2-1.3) 12/26/23 04:49
AST 203 U/L (14-36) H 12/26/23 04:49
ALT 86 U/L (0-35) H 12/26/23 04:49
Alkaline Phosphatase 145 U/L (38-126) H 12/26/23 04:49
Most recent labs reviewed.
Micro Results:
12/24/23 13:13 Blood Culture - Preliminary
Blood/Venous No Growth in 48 hours- Final report to follow
12/24/23 13:13 Blood Culture - Preliminary
Blood/Venous No Growth in 48 hours- Final report to follow
12/26/23 09:35 Blood Culture - Pending
Blood/Venous
12/26/23 09:55 Blood Culture - Pending
Blood/Venous
12/24/23 15:09 Salmonella/Shigella Culture - Final
Feces/Stool No Salmonella, Shigella, Aeromonas or Plesiomonas species
isolated.
Campylobacter Culture - Final
No Campylobacter species isolated.
Shiga Toxin Test - Pending
12/24/23 15:09 C. difficile GDH Antigen & Toxins - Final
Feces/Stool Toxigenic C.difficile Positive
- Final
Negative for Norovirus GI and GII.
--- NOTE | 2023-12-26 16:25 | SUR.OPER ---
Assumed care of patient at 15:00 from Day Shift RN.
Assessment unchanged from prior assessment. Patient continues to be ambulatory. Reports diarrhea has lessened/she's having softly formed stools.
[2023-12-26] MEDS: XANAX 0.25 MG PO (23:17)
[2023-12-27 04:08] VITALS: BP 108/67
[2023-12-27 04:09] VITALS: BMI 23.4
[2023-12-27 04:59] LABS: Hemoglobin 8.5 g/dL (12.0-16.0); Mean Corpuscular Volume 79.4 fL (81.0-99.0); Mean Platelet Volume 11.1 fL (7.4-10.4); Platelet Count 148 10^3/uL (130-400); Red Blood Cell Count 3.15 10^6/uL (4.20-5.40); Red Cell Dist. Width 14.9 % (11.5-14.5); White Blood Cell Count 4.5 10^3/uL (4.8-10.8)
[2023-12-27 05:31] LABS: ALT (SGPT) 76 U/L (0-35); AST (SGOT) 93 U/L (14-36); Albumin 2.5 g/dl (3.5-5.0); Alkaline Phosphatase 142 U/L (38-126); Blood Urea Nitrogen 23 mg/dl (7-17); Calcium 8.3 mg/dl (8.4-10.2); Carbon Dioxide 32 mmol/L (22-30); Chloride 101 mmol/L (98-107); Estimated Creatinine Clearance 52 ml/min; Glucose 87 mg/dl (70-99); Potassium 3.8 mmol/L (3.5-5.1); Sodium 133 mmol/L (135-145); Total Bilirubin 0.5 mg/dl (0.2-1.3); Total Protein 5.2 g/dl (6.3-8.2); eGFR > 60.00
[2023-12-27] MEDS: FIRVANQ 125 MG PO ×2 (06:46→12:54)
[2023-12-27 07:30] VITALS: BP 108/68
--- NOTE | 2023-12-27 09:19 | W.PN.ID1 ---
Date of Service
Date of Service: December 27, 2023
Today's Communication
Can dc home on Vancomycin 125mg capsules po q6h through 01/03/24.
DC PICC.
Assessment / Plan
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
# Fever - resolved
- Diarrhea resolving
- blood neg to date.
-Continue Vancomycin 125mg po q6h through 01/03/24.
- Discussed 20% recurrence rate after first episode C. diff.
# Limb tingling and pain resolved after dc cefepime.
# Left great toe osteo
- Resolved
- s/p cefepime 29 days 2gIV q12 ( short 13d)
- In light of C. diff, risk of continuing abx outweigh benefit.
- No further systemic abx going forward. DC PICC
# Acute elevated transaminases, leukopenia, thrombocytopenia - all improving.
- ?due to cefepime -> dc'd
%Additional Past Medical History:
pAfib
s/p bio-AVR (05/2023)
Septal myomectomy (05/2023)
VSD repair (05/2023)
Complete heart block s/p PPM (05/2023)
HFpEF
Post-op ischemic toes
Depression/anxiety
Sciatica
Chief Complaint
-: C-diff and Other (osteo)
Subjective / Review of Systems
Feels well. Diarrhea resolved.
Vital Signs / Physical Exam
Vital Signs
Vital Signs
Temp Pulse Resp BP Pulse Ox
98.0 F 79 16 108/68 96
12/27/23 07:30 12/27/23 07:30 12/27/23 07:30 12/27/23 07:30 12/27/23 07:30
Physical Exam
Constitutional: No Acute Distress and Comfortable
Gastrointestinal: Soft, Non Tender, Non Distended and Normal Bowel Sounds
Genito-Urinary: Negative CVA Tenderness
Extremities: Other (left great toe no erythema, wound healed; left 4th toe purplish discoloration resolving. ); Negative Edema
Neurological: AO x 3
Objective Data
Lab Data
Lab Results
12/27/23 04:42
12/27/23 04:42
Estimated Creat Clear 52 ml/min 12/27/23 04:42
Lactic Acid Cancelled 12/24/23 16:30
Total Bilirubin 0.5 mg/dl (0.2-1.3) 12/27/23 04:42
AST 93 U/L (14-36) H 12/27/23 04:42
ALT 76 U/L (0-35) H 12/27/23 04:42
Alkaline Phosphatase 142 U/L (38-126) H 12/27/23 04:42
Most recent labs reviewed.
Micro Results:
12/24/23 13:13 Blood Culture - Preliminary
Blood/Venous No Growth in 48 hours- Final report to follow
12/24/23 13:13 Blood Culture - Preliminary
Blood/Venous No Growth in 48 hours- Final report to follow
12/26/23 09:35 Blood Culture - Pending
Blood/Venous
12/26/23 09:55 Blood Culture - Pending
Blood/Venous
12/24/23 15:09 Salmonella/Shigella Culture - Final
Feces/Stool No Salmonella, Shigella, Aeromonas or Plesiomonas species
isolated.
Campylobacter Culture - Final
No Campylobacter species isolated.
Shiga Toxin Test - Pending
12/24/23 15:09 C. difficile GDH Antigen & Toxins - Final
Feces/Stool Toxigenic C.difficile Positive
- Final
Negative for Norovirus GI and GII.
Care Review
Plan reviewed with: Physician (Dr. Johansne)
[2023-12-27] MEDS: FEOSOL 325 MG PO (09:36)
[2023-12-27] MEDS: TOPROL XL 25 MG PO (09:36)
[2023-12-27] MEDS: THERAGRAN 1 TABLET PO (09:36)
[2023-12-27] MEDS: PEPCID 20 MG PO (09:36)
[2023-12-27] MEDS: PROTONIX 40 MG PO (09:36)
[2023-12-27] MEDS: NEURONTIN 300 MG PO (09:36)
[2023-12-27] MEDS: CLARITIN 10 MG PO (09:36)
[2023-12-27] MEDS: LEXAPRO 10 MG PO (09:37)
[2023-12-27] MEDS: LOW STRENGTH ASPIRIN 81 MG PO (09:37)
[2023-12-27] MEDS: VITAMIN D3 (cholecalciferol) 100 MCG PO (09:37)
[2023-12-27] MEDS: OCEAN, SALINE MIST 1 SPRAYS NASAL (09:37)
[2023-12-27] MEDS: ELIQUIS 5 MG PO (09:37)
--- NOTE | 2023-12-27 11:09 | VATNOTE ---
12/26 Right PICC D/C TCL 35cm retrieved occlusive dressing applied.
[2023-12-27 11:30] VITALS: BP 103/69
--- NOTE | 2023-12-27 11:57 | W.PN.HOSP.TC ---
Addendum entered and electronically signed by Marco Villanueva MD 12/27/23 15:45:
Sacral decubitus ulcer was ruled out
Addendum entered and electronically signed by Marco Villanueva MD 12/27/23 15:36:
[id number]
Original Note:
Today's Communication/Plan
-
Increased bilateral renal cortical echogenicity, nonspecific but may be seen in association with medical renal disease - F/u PCP
Vancomycin 125mg capsules po q6h through 01/03/24.
F/u PCP outpatient
BMP outpatient
Assessment / Plan
Assessment / Plan
Physical Exam
General: Well Developed, Well Nourished and No Apparent Distress
HEENT: NormoCephalic, Moist mucous membranes and Atraumatic
Respiratory: Clear
Cardiac: S1/S2 and Regular Rhythm; No Murmur or Rub
GI: Soft, Non Tender, Non Distended and Normal Bowel Sounds; No Organomegaly
Rectal: Deferred by Provider
Musculoskeletal: No Clubbing, No Cyanosis and No Edema
Skin: No Rash
Neuro: Nonfocal/grossly intact
# C. difficile colitis secondary to current IV antibiotics for osteomyelitis, improved
-C. difficile toxin positive
-P.o. vancomycin started: Continue Vancomycin 125mg po q6h through 01/03/24.
- tolerating LRD
-ID consulted
#Hypokalemia
-monitor and replete
# Non-anion gap metabolic acidosis secondary to GI losses
resolved
stop bicarb solution
# Osteomyelitis of left great toe
#Limb tingling after cefepime
-X-ray shows no significant change compared to prior study
-cefepime held - planned for approximately 2 more weeks was scheduled; discontinue due to tingling and continue to monitor; risks >benefits with tingling and cdiff; after discussion with infectious disease, hold on further antibiotics. Discontinue
PICC
-ID consulted
-Pain control for limb tingling, no evidence of CVA at this time
#Sepsis
-most likely 2/2 to above cdiff
�Negative cultures
-off cefepime, f/u id recs for further abx therapy
-no urinary symptoms
� See plan above, vancomycin until 01/02
#Acute elevated transaminitis
�Possibly secondary to cefepime
� Continue to monitor
-RUQ sono unremarkable for acute pathology
� Follow-up LFTs outpatient
#Pancytopenia
� Possibly secondary to cefepime
� Continue to monitor off antibiotic
-improving
Aortic stenosis status post AVR
-Continue aspirin
Mitral valve repair with septal myomectomy
Mild to moderate mitral regurgitation
-resume lasix
Paroxysmal atrial fibrillation status post cardioversion
-Continue Eliquis
-Continue metoprolol
Hyponatremia
-ctm
-f/u bmp outpatient
Increased bilateral renal cortical echogenicity, nonspecific but may be seen in association with medical renal disease
-f/u pcp outpatient
Complete heart block status post ICD/pacemaker
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
History of recurrent pleural effusions after AVR status post thoracentesis
Essential hypertension
Hyperlipidemia
Chronic anemia
-Hemoglobin fluctuates between 8.5-10
-Currently hemoglobin 8.5, continue to monitor
-Continue iron supplement
Anxiety/depression
-Continue Lexapro
Sciatica
-Continue gabapentin
Biliary sepsis status post cholecystostomy drain
Sacral decubitus ulcer
Scoliosis
GERD
-Continue Protonix
Full code
DVT prophylaxis�Eliquis
LRD
More than 30 minutes spent in discharge including
Final examination of the patient
Summarizing hospital stay
Instructions for continuing care to all relevant caregivers
Preparation of discharge records, prescriptions, and referral forms
Total time spent (35 in minutes):
Anticipated Discharge: Today
Subjective/Interval History
-
Date of Service: December 27, 2023
diarrhea improved
Objective Data
-
Labs:
Laboratory Results
12/27/23
04:42
WBC 4.5 L
Hgb 8.5 L
Hct 25.0 L
Plt Count 148
Sodium 133 L
Potassium 3.8 D
Chloride 101
Carbon Dioxide 32 H
BUN 23 H
Creatinine 0.9
Glucose 87
Calcium 8.3 L
Total Bilirubin 0.5
AST 93 H
ALT 76 H
Alkaline Phosphatase 142 H
Vital Signs:
Vital Signs
Temp Pulse Resp BP Pulse Ox
98.0 F 79 16 108/68 96
12/27/23 07:30 12/27/23 09:36 12/27/23 07:30 12/27/23 09:36 12/27/23 07:30
I&O
12/26/23 12/27/23 12/28/23
06:59 06:59 06:59
Intake Total 1919 480 / 480
Balance 1919 480 / 480
Review of Systems
-
History Source: Patient
All other systems: Not reviewed unless documented
Physical Exam
-
General: No Apparent Distress
HEENT: Normocephalic and Atraumatic
Respiratory: Negative Wheezes
Cardiac: Regular Rhythm
GI: Soft
Genito-urinary: No Costovertebral Tender
Neuro: AO x 3
Hematologic / Lymphatic: No Lymphadenopathy
Psych: Calm
Data Reviewed
-
Total Time Spent with Patient (in minutes): 45
Diagnostic Radiology: Image personally visualized and interpreted and Report Reviewed by me
CT Scan: Image personally visualized and interpreted and Report Reviewed by me
Labs: Labs Reviewed by me
--- NOTE | 2023-12-27 12:05 | W.DS.TRANS ---
DC Summary - Carton Counter Feeder
-
Discharge Instructions:
Sleep Apnea Risk Low
Discharge Diagnosis/Procedures C. difficile diarrhea
Diet Low Cholesterol,Low Fat,2 Gram Sodium
Blood Work bmp, LFTs in 1 week with pcp
Instructions:
Stand-Alone Forms:
Changes to Home Medications: Yes
Discharge Medications:
DC Medications w/original date entered in [facility]
acetaminophen 325 mg tablet 650 mg PO Q6H PRN mild pain 07/13/23
apixaban 5 mg tablet (Eliquis) 5 mg PO BID Blood clot prevention/tx #180 tabs 07/24/23
aspirin 81 mg chewable tablet 81 mg PO DAILY Blood clot prevention/tx #90 tabs 07/24/23
famotidine 20 mg tablet 20 mg PO DAILY Gastrointestinal issue #90 tabs 07/24/23
gabapentin 300 mg capsule 300 mg PO BID #120 caps 07/24/23
loratadine 10 mg tablet (Claritin) 10 mg PO DAILY Allergies #90 tabs 07/24/23
multivitamin 1 tab PO DAILY #90 tabs 07/24/23
ferrous sulfate 325 mg (65 mg iron) tablet (iron) 325 mg PO DAILY Supplement 11/26/23
pantoprazole 40 mg tablet,delayed release 40 mg PO DAILY Gastrointestinal Issue 11/26/23
biotin 2 tab PO DAILY 12/24/23
cholecalciferol (vitamin D3) 50 mcg (2,000 unit) tablet 100 mcg PO DAILY High Cholesterol 12/24/23
escitalopram oxalate 10 mg tablet 10 mg PO DAILY Mental Health/Anxiety 12/24/23
furosemide 20 mg tablet 20 mg PO DAILY PRN weight fluctuation 12/24/23
metoprolol succinate 25 mg tablet,extended release 24 hr 25 mg PO BID Heart Disease/Condition 12/24/23
pseudoephedrine 30 mg-acetaminophen 500 mg tablet 2 tab PO BIDPRN PRN sinus issues 12/24/23
sodium chloride 0.65 % nasal spray aerosol (Saline Nasal Mist) 2 spray intranasal BID 12/24/23
vancomycin 125 mg capsule 125 mg PO QID 8 days #32 caps 12/27/23
Home Medication Changes
vancomycin 125 mg capsule 125 mg PO QID 8 days #32 caps 12/27/23
Pending Results: No
[2023-12-27 14:33] VITALS: BP 101/65
--- NOTE | 2023-12-27 15:05 | PTCARENOTE ---
Patient ready for discharge.
Went over discharge instructions with patient and patient's son. Removed IV. Patient ambulated out of hospital.
--- NOTE | 2023-12-27 15:09 | CM ---
For d/c home today.
No d/c needs.
Family will transport.
== END 2023-12-27 15:05 | disposition home or self-care (01) | DRG 871 ==
LOC: 4 WEST ACU 16:38
PROVIDERS: ADMITTING PHYSICIAN Hospitalist; ATTENDING PHYSICIAN Internal Medicine; CONSULT PHYSICIAN Internal Medicine Infectious Disease; EMERGENCY PHYSICIAN Emergency Medicine; FAMILY PHYSICIAN Physician Assistant Medical
DX: A41.9 Sepsis, unspecified organism (principal); D61.811 Other drug-induced pancytopenia; A04.72 Enterocolitis due to Clostridium difficile, not specified as recurrent; E87.20 Acidosis, unspecified; M86.9 Osteomyelitis, unspecified; D61.818 Other pancytopenia; E87.1 Hypo-osmolality and hyponatremia; I50.30 Unspecified diastolic (congestive) heart failure; M86.572 Other chronic hematogenous osteomyelitis, left ankle and foot; D69.6 Thrombocytopenia, unspecified; I48.0 Paroxysmal atrial fibrillation; I11.0 Hypertensive heart disease with heart failure; E78.5 Hyperlipidemia, unspecified; D64.9 Anemia, unspecified; F41.9 Anxiety disorder, unspecified; F32.A Depression, unspecified; M54.30 Sciatica, unspecified side; M41.9 Scoliosis, unspecified; K21.9 Gastro-esophageal reflux disease without esophagitis
CPT/HCPCS: 71045; 73630; 76700; 80048; 80053; 82962; 83605; 83735; 85025; 85027; 87040; 87045; 87046; 87324; 87427; 87449; 87798; 96360; 99285

== ENCOUNTER 2024-01-02 16:37 | Outpatient (RCR) | payer OTHER, SELFPAY ==
[2024-01-02 11:49] LABS: HDL Cholesterol 60 mg/dl; LDL Cholesterol, Calculated 109 mg/dl; Total Cholesterol 200 mg/dl (50-199); Triglyceride 159 mg/dl (10-149); Very Low Density Lipoprotein 31 mg/dl (0-30)
== END 2024-01-02 23:59 | disposition home or self-care (01) ==
LOC: CRHB 16:37
PROVIDERS: ATTENDING PHYSICIAN Internal Medicine Cardiovascular Disease; FAMILY PHYSICIAN Physician Assistant Medical
DX: I34.0 Nonrheumatic mitral (valve) insufficiency (principal); Z95.2 Presence of prosthetic heart valve; Z95.810 Presence of automatic (implantable) cardiac defibrillator
CPT/HCPCS: 36415; 80061; G0422; G0423

== ENCOUNTER 2024-01-14 17:51 | Outpatient (RCR) | payer OTHER, SELFPAY | END 2024-01-14 23:59 | disposition home or self-care (01) | LOC: RPT 17:51 | PROVIDERS: ATTENDING PHYSICIAN Physician Assistant Medical | DX: M54.2 Cervicalgia (principal); Z73.6 Limitation of activities due to disability | CPT/HCPCS: 97010; 97110 ==

== ENCOUNTER 2024-01-21 16:42 | Outpatient (RCR) | payer OTHER, SELFPAY | END 2024-01-21 23:59 | disposition home or self-care (01) | LOC: RST 16:42 | PROVIDERS: ATTENDING PHYSICIAN Physical Medicine & Rehabilitation; FAMILY PHYSICIAN Physician Assistant Medical | DX: R49.0 Dysphonia (principal); R41.841 Cognitive communication deficit | CPT/HCPCS: 92507 ==

== ENCOUNTER → 2024-01-21 18:11 | Outpatient (REF) | payer OTHER, SELFPAY | LOC: RAD 18:11 | PROVIDERS: ATTENDING PHYSICIAN Podiatrist Foot & Ankle Surgery; FAMILY PHYSICIAN Physician Assistant Medical | DX: M86.172 Other acute osteomyelitis, left ankle and foot (principal) | CPT/HCPCS: 73630 ==

== ENCOUNTER 2024-02-04 18:40 | Outpatient (RCR) | payer OTHER, SELFPAY | END 2024-02-12 08:27 | disposition home or self-care (01) | LOC: RPT 18:40 | PROVIDERS: ATTENDING PHYSICIAN Physician Assistant Medical | DX: M54.2 Cervicalgia (principal); Z73.6 Limitation of activities due to disability | CPT/HCPCS: 97010; 97110 ==

== ENCOUNTER 2024-02-13 06:40 | Day surgery (SDC) | payer OTHER, SELFPAY ==
[2024-02-13 11:22] VITALS: BMI 21.3
[2024-02-13 11:23] VITALS: BMI 21.3
[2024-02-13 11:24] VITALS: BP 97/55
[2024-02-13 13:59] VITALS: BP 96/54; BP 97/55
[2024-02-13 14:15] VITALS: BP 99/57
[2024-02-13 14:30] VITALS: BP 97/56
[2024-02-13 14:45] VITALS: BP 97/58; BP 99/55
== END 2024-02-13 15:35 | disposition home or self-care (01) ==
LOC: SDS 06:40
PROVIDERS: ATTENDING PHYSICIAN Podiatrist Foot & Ankle Surgery
DX: M86.172 Other acute osteomyelitis, left ankle and foot (principal); M87.878 Other osteonecrosis, left toe(s); Z86.19 Personal history of other infectious and parasitic diseases
CPT/HCPCS: 28820; 88304; 88311; 73630; 87070; 87147; 87176; 87186; 87205

== ENCOUNTER 2024-03-03 16:00 | Outpatient (RCR) | payer OTHER, SELFPAY | END 2024-03-03 23:59 | disposition home or self-care (01) | LOC: RPT 16:00 | PROVIDERS: ATTENDING PHYSICIAN Physician Assistant Medical | DX: M54.2 Cervicalgia (principal); Z73.6 Limitation of activities due to disability | CPT/HCPCS: 97110 ==

== ENCOUNTER 2024-03-17 17:51 | Outpatient (RCR) | payer OTHER, SELFPAY | END 2024-03-17 23:59 | disposition home or self-care (01) | LOC: RPT 17:51 | PROVIDERS: ATTENDING PHYSICIAN Physician Assistant Medical | DX: M54.2 Cervicalgia (principal); Z73.6 Limitation of activities due to disability | CPT/HCPCS: 97110 ==

== ENCOUNTER → 2024-04-15 15:58 | Outpatient (REF) | payer OTHER, SELFPAY | LOC: RCS 15:58 | PROVIDERS: ATTENDING PHYSICIAN Thoracic Surgery (Cardiothoracic Vascular Surgery); FAMILY PHYSICIAN Physician Assistant Medical | DX: I42.1 Obstructive hypertrophic cardiomyopathy (principal); Z95.2 Presence of prosthetic heart valve; Z87.74 Personal history of (corrected) congenital malformations of heart and circulatory system | CPT/HCPCS: 93306 ==

== ENCOUNTER 2024-05-16 06:28 | Day surgery (SDC) | payer OTHER, SELFPAY ==
[2024-05-16 09:55] VITALS: BMI 21.6
[2024-05-16 09:56] VITALS: BP 104/69
[2024-05-16 12:17] VITALS: BP 93/66
[2024-05-16 12:30] VITALS: BP 92/66
[2024-05-16 12:45] VITALS: BP 105/64
== END 2024-05-16 12:50 | disposition home or self-care (01) ==
LOC: SDS 06:28
PROVIDERS: ATTENDING PHYSICIAN Internal Medicine Gastroenterology
DX: D12.0 Benign neoplasm of cecum (principal); K52.9 Noninfective gastroenteritis and colitis, unspecified; D50.9 Iron deficiency anemia, unspecified; K57.30 Diverticulosis of large intestine without perforation or abscess without bleeding; K22.89 Other specified disease of esophagus; K21.9 Gastro-esophageal reflux disease without esophagitis; K44.9 Diaphragmatic hernia without obstruction or gangrene; K31.89 Other diseases of stomach and duodenum; Z79.01 Long term (current) use of anticoagulants
CPT/HCPCS: 45380; 43239; 88305; 88342

== ENCOUNTER → 2024-09-02 06:27 | Day surgery (SDC) | payer OTHER, SELFPAY | LOC: GI 06:27 | PROVIDERS: ATTENDING PHYSICIAN Internal Medicine Gastroenterology | DX: D50.9 Iron deficiency anemia, unspecified (principal); K44.9 Diaphragmatic hernia without obstruction or gangrene; K31.89 Other diseases of stomach and duodenum | CPT/HCPCS: 43235; 91035 ==

== ENCOUNTER → 2024-10-04 10:27 | Outpatient (REF) | payer OTHER, SELFPAY | LOC: WDC 10:27 | PROVIDERS: ATTENDING PHYSICIAN Physician Assistant Medical | DX: Z12.31 Encounter for screening mammogram for malignant neoplasm of breast (principal) | CPT/HCPCS: 77063; 77067 ==

== ENCOUNTER → 2024-10-27 08:54 | Outpatient (REF) | payer OTHER, SELFPAY | LOC: RAD 08:54 | PROVIDERS: ATTENDING PHYSICIAN Internal Medicine Rheumatology; FAMILY PHYSICIAN Physician Assistant Medical | DX: M81.0 Age-related osteoporosis without current pathological fracture (principal) | CPT/HCPCS: 77080 ==

== ENCOUNTER → 2025-02-20 14:57 | Outpatient (REF) | payer OTHER, SELFPAY | LOC: WDC 14:57 | PROVIDERS: ATTENDING PHYSICIAN Physician Assistant Medical | DX: R92.30 Dense breasts, unspecified (principal) | CPT/HCPCS: 76641 ==

== ENCOUNTER → 2025-04-15 10:44 | Outpatient (REF) | payer OTHER, SELFPAY | LOC: RCS 10:44 | PROVIDERS: ATTENDING PHYSICIAN Internal Medicine Cardiovascular Disease; FAMILY PHYSICIAN Physician Assistant Medical | DX: I35.0 Nonrheumatic aortic (valve) stenosis (principal); Z95.2 Presence of prosthetic heart valve; Z98.890 Other specified postprocedural states | CPT/HCPCS: 93306 ==

== ENCOUNTER → 2025-05-28 13:49 | Outpatient (REF) | payer OTHER, SELFPAY | LOC: RCS 13:49 | PROVIDERS: ATTENDING PHYSICIAN Internal Medicine Cardiovascular Disease; FAMILY PHYSICIAN Physician Assistant Medical | DX: I42.1 Obstructive hypertrophic cardiomyopathy (principal) | CPT/HCPCS: 93308; 93321; 93325 ==

== ENCOUNTER → 2025-09-07 08:15 | Outpatient (REF) | payer OTHER, SELFPAY | LOC: DHSLP 08:15 | PROVIDERS: ATTENDING PHYSICIAN Internal Medicine Critical Care Medicine; FAMILY PHYSICIAN Physician Assistant Medical | DX: G47.33 Obstructive sleep apnea (adult) (pediatric) (principal) | CPT/HCPCS: 95806 ==